=== PATIENT | male | born 1965 | race Caucasian/White ===

== ENCOUNTER 2019-11-06 10:32 | Outpatient (CLI) | payer OTHER ==
--- NOTE | 2019-11-06 12:20 | RAD ---
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 FINDINGS: Exam includes flexion and extension upright lateral views. Multilevel disk-osteophytosis with disk s pace narrowing, particularly at L5-S1. Unfused anterior ring epiphysis at the superior aspect of L5. No abnormal translation between flexion and extension. IMPRESSION: Multilevel spondylosis. No evidence for acute process. POS: OFF
--- NOTE | 2019-11-06 15:17 | MRI ---
MRI lumbar spine noncontrast HISTORY: Low back pain with bilateral radiculopathy. FINDINGS: Conus medullaris has normal appearance. Vertebral body heights and AP alignment are [place]. Mild discogenic endplate changes throughout the bone marrow. T12-L1: Disc space narrowing. Minimal disc bulge. Osteophytosis of the facets. Central canal and righ t neural foramen are patent. Mild stenosis of the left neural foramen. L1-2: Mild osteophytosis. Central canal and neural foramina are patent. L2-3: Mild to moderate osteophytosis. Central canal and neural foramina are patent. L2-3: Disc space narrowing. Mild posterior disc bulge and circumferential degenerative changes. Moder ate stenosis of the central canal. Moderate to severe right and moderate left foraminal stenoses. L4-5: Desiccation of the disc. Left posterior and postero-lateral disc protrusion. Resultant compress ion of the left ventral aspect of the thecal sac and origin of the left L5 nerve root. Extension into the left neural foramen. There is prominent osteophytosis. Moderate stenosis of the central shelly l. Mild right and severe left foraminal stenoses. L5-S1: Mild disc bulge. Osteophytosis of the facets. Thecal sac is patent. Mild left foraminal stenos is. 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 IMPRESSION : Prominent multilevel degenerative changes throughout the lumbar spine as detailed above. Worst at the L4-5 level where there is severe stenosis of the left neural foramen. Disc protrusion also compresses the left L5 nerve root origin. Clinical correlation regarding the left L4 and L5 dermatome s is required.
== END 2019-11-06 10:33 | disposition home or self-care (01) ==
LOC: SCSMRI 10:32
PROVIDERS: ATTEND Nurse Practitioner Family
DX: M51.16 Intervertebral disc disorders with radiculopathy, lumbar region (principal); M47.26 Other spondylosis with radiculopathy, lumbar region; M48.061 Spinal stenosis, lumbar region without neurogenic claudication; G95.20 Unspecified cord compression
CPT/HCPCS: 72100; 72148